=== PATIENT | male | born 1985 | race American Indian/Alaskan Native ===

== ENCOUNTER 2016-11-03 17:40 | Emergency (ER) | payer SELFPAY ==
[2016-11-03 18:19] VITALS: BP 127/90
[2016-11-03] MEDS ORDERED: ROCEPHIN IM ONE (21:12)
[2016-11-03] MEDS ORDERED: XYLOCAINE 1% MPF 5 mL INFILTRATI ONE (21:12)
[2016-11-03] MEDS ORDERED: ZITHROMAX PO ONE (21:13)
[2016-11-03] MEDS ORDERED: FLAGYL PO ONE (21:13)
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
== END 2016-11-03 22:07 | disposition home or self-care (01) ==
LOC: ED 17:40
DX: M79.601 Pain in right arm (principal); G89.29 Other chronic pain
CPT/HCPCS: 87591; 96372; 99282; J0696